=== PATIENT | female | born 1955 | race Caucasian/White ===

== ENCOUNTER → 2021-11-08 | Day surgery (SDC) | payer MEDICARE, OTHER ==
[~2021-11-08] VITALS: Ht 162.6 cm; Wt 82.5 kg
[~2021-11-08] MED LIST: ASCORBIC ACID500 MG PO; ATORVASTATIN CA20 MG PO; BERBERINE PO; COZAAR100 MG PO; KLOR-CON M2020 MEQ PO; LASIX20 MG PO; MAG-OXIDE 400M400 MG PO; METFORMIN HCL500 MG PO; NORCO 5-325 TA1 EACH PO; VITAMIN D31250 MCG PO; VITAMIN E180 MG PO; ZINC50 M2 PO
[2021-11-08 08:13] LABS: HCT 33.1 % (37.0-47.0); HGB 10.7 g/dl (12.5-16.0); MCH 28.5 pg (25.0-31.0); MCHC 32.3 g/dL (32.0-36.0); MCV 88.3 fL (78.0-100.0); MPV 8.9 fL (6.0-9.5); RBC 3.75 M/uL (4.20-5.40); RDW 13.2 % (11.5-14.0); WBC 6.3 K/uL (4.0-10.5)
[2021-11-08 09:04] LABS: ALBUMIN 3.2 g/dL (3.4-5.0); BILIRUBIN - TOTAL 0.3 mg/dL (0.2-1.0); BUN/CREAT RATIO (CALC) 17.1 RATIO; CREATININE 0.7 mg/dL (0.51-0.95); GLOBULIN (CALCULATION) 3.6 g/dL; POTASSIUM 4.3 mmol/L (3.5-5.1); TOTAL PROTEIN 6.8 g/dL (6.4-8.2)
== END | disposition home or self-care (01) ==
LOC: FAS 10-21 08:30
PROVIDERS: Surgery
DX: I87.2 Venous insufficiency (chronic) (peripheral) (principal); Z91.040 Latex allergy status; E11.9 Type 2 diabetes mellitus without complications; E78.5 Hyperlipidemia, unspecified; I10 Essential (primary) hypertension; C85.90 Non-Hodgkin lymphoma, unspecified, unspecified site
CPT/HCPCS: 36415; 80053; 93005; J2405; J2704; J3010; J7120